=== PATIENT | male | born 1965 | race Caucasian/White ===

== ENCOUNTER 2019-03-08 16:54 | Inpatient (IN) | payer MEDICAID ==
[2019-03-08] VITALS (13 sets, daily range): BP systolic 119–168; BP diastolic 77–98
[~2019-03-08] VITALS: Ht 152.4 cm; Wt 56.2 kg
--- NOTE | 2019-03-08 16:30 | NUR ---
RN NOTES RECEIVED PT IN ROOM 255 FROM [facility], PT PLACED IN ISOLATION ROOM , PT IS A/Ox4, O2 SAT 91%-92% ON 5L O2 N/C , ON TELE A.FIB HR IN 100'S , PT HAS LEFT ARM AV SHUNT FOR DIALYSIS, WITH POSITIVE BRUIT AND TRILL. IV SITES ON R HAND AND R HAND G20 CLEAN, DRY AND INTACT. DR NAVARRO NOITFED REGARDING ADMISSION ORDER , SR UP x3, CALL LIGHT WITHIN EASY REACH, BED LOCKED AND IN LOWEST POSITION , CONTINUE TO MONITOR .
[2019-03-08] MEDS ORDERED: TRAM50TA2 PO (17:25)
[2019-03-08] MEDS ORDERED: PRED2.5T PO (17:25)
[2019-03-08] MEDS ORDERED: CLON0.2T PO (17:25)
[2019-03-08] MEDS ORDERED: CALC-7 PO (17:25)
[2019-03-08] MEDS ORDERED: CHOL200026 PO (17:25)
[2019-03-08] MEDS ORDERED: LEVO25TA7 PO (17:25)
[2019-03-08] MEDS ORDERED: CEFT1VIA14 IV (17:25)
[2019-03-08] MEDS ORDERED: CALC0.253 PO (17:25)
[2019-03-08] MEDS ORDERED: NIFE60TA2 PO (17:25)
[2019-03-08] MEDS ORDERED: ONDA4VIA52 IVP (17:25)
[2019-03-08] MEDS ORDERED: PANT40TA2 PO (17:25)
[2019-03-08] MEDS ORDERED: FURO10VI IVP (17:25)
[2019-03-08] MEDS ORDERED: GUAI5SYR PO (17:25)
[2019-03-08] MEDS ORDERED: FOLI0.4T2 PO (17:25)
[2019-03-08] MEDS ORDERED: ASPI-1152 PO (17:25)
[2019-03-08] MEDS ORDERED: ACET-868 PO ×2 (17:25)
[2019-03-08] MEDS ORDERED: OMEG1CAP PO (17:25)
[2019-03-08] MEDS ORDERED: AMIO200T4 PO (17:25)
[2019-03-08] MEDS ORDERED: METO25TA6 PO (17:25)
[2019-03-08] MEDS ORDERED: DOCU250C14 PO (17:25)
[2019-03-08] MEDS ORDERED: HYDR100T27 PO (17:25)
[2019-03-08] MEDS ORDERED: CYCL50CA6 PO (17:25)
[2019-03-08] MEDS ORDERED: CITR30SO PO (17:25)
[2019-03-08] MEDS ORDERED: RANI150T8 PO (17:38)
[2019-03-08] MEDS ORDERED: MYCO500T5 PO (17:38)
--- NOTE | 2019-03-08 18:25 | NUR ---
RN NOTES PT STABLE, WILL ENDORSE TO FULL STACK SOFTWARE DEVELOPER NURSE FOR CONTINUITY OF CARE .
[2019-03-08] MEDS ORDERED: ONDANSETRON HCL/PF 4 MG/2 ML VIAL IVP PRN ×2 (19:00→19:30)
[2019-03-08] MEDS ORDERED: DOCUSATE SODIUM 250 MG CAPSULE PO PRN (19:00)
[2019-03-08] MEDS ORDERED: TRAMADOL HCL 50 MG TABLET PO PRN (19:00)
[2019-03-08] MEDS ORDERED: ACETAMINOPHEN 325 MG TABLET PO PRN ×2 (19:00→19:30)
[2019-03-08] MEDS ORDERED: CLONIDINE HCL 0.1 MG TABLET PO PRN (19:00)
--- NOTE | 2019-03-08 19:05 | NUR ---
QUARRY PLANT CRUSHER OPERATOR RCD REPORT; PENDING ADMISSION ORDERS.
[2019-03-08] MEDS ORDERED: MAGNESIUM HYDROXIDE 30 ML UDC PO PRN (19:30)
[2019-03-08] MEDS ORDERED: HYDROCODONE/APAP 5/325MG 1 EACH TABLET PO PRN (19:30)
[2019-03-08] MEDS ORDERED: Z GUARD REMEDY 2 OZ OINT TP PRN (19:30)
[2019-03-08] MEDS ORDERED: MAG HYDROX/AL HYDROX/SIMETH 30 ML UDC PO PRN (19:30)
--- NOTE | 2019-03-08 20:11 | NUR ---
WELL DRILL OPERATOR HELPER CABLE TOOL PT CONVERTED TO NSR. CONTINUE TO MONITOR.
[2019-03-08] MEDS ORDERED: FEE PK DOSING 1 MIN EA MC ONE (20:23)
[2019-03-08] MEDS ORDERED: VANCOMYCIN POST DIALYSIS 500MG IV PRN ×2 (20:30)
[2019-03-08] MEDS: OSELTAMIVIR PHOSPHATE 75 MG CAPSULE PO SCH (20:59)
[2019-03-08] MEDS: MYCOPHENOLATE MOFETIL 250 MG CAPSULE PO SCH (21:00)
[2019-03-08] MEDS ORDERED: IV NS 0.9% 250 ML IV PRN (21:00)
[2019-03-08] MEDS ORDERED: hydrALAZINE HCL 50 MG TABLET PO SCH (21:00)
[2019-03-08] MEDS: CEFEPIME 1 GM in IV D5W 50 ML IV SCH (21:00)
[2019-03-08] MEDS: CITRIC ACID/SODIUM CITRATE (BICITRA)15 ML UDC PO SCH (21:00)
--- NOTE | 2019-03-08 21:00 | NUR ---
SUPERVISOR HEADING PER PT HE IS NOT ALLERGIC TO HYDRALAZINE; HOWEVER HE DOES NOT WANT IV HYDRALAZINE GIVEN TOO FAST BECAUSE HE WILL VOMIT.
[2019-03-08] MEDS: FAMOTIDINE (20 MG) 20 MG TABLET PO SCH (21:01)
[2019-03-08] MEDS: NIFEdipine XL 60 MG TAB PO SCH (21:02)
[2019-03-08] MEDS: hydrALAZINE HCL 50 MG TABLET PO SCH (21:02)
[2019-03-08 21:28] LABS: BASOPHILS # (AUTO) 0.1 /CMM (0.0-0.2); BASOPHILS % (AUTO) 0.5 % (0.0-2.0); EOSINOPHILS % (AUTO) 0.7 % (0.0-6.0); HEMATOCRIT 35 % (39-51); HEMOGLOBIN 11.1 g/dL (13.5-17.5); LYMPHOCYTES # (AUTO) 0.2 /CMM (0.8-4.8); MEAN CORPUSCULAR HGB CONC 32 g/dl (31.0-36.0); MEAN CORPUSCULAR VOLUME 86 fL (80-96); MONOCYTES # (AUTO) 0.3 /CMM (0.1-1.30); MONOCYTES % (AUTO) 2.7 % (2.0-12.0); NEUTROPHILS # (AUTO) 9.2 /CMM (1.8-8.9); NEUTROPHILS % (AUTO) 94.1 % (43.0-81.0); PLATELET COUNT (AUTO) 100 /CMM (150-450); RED BLOOD CELL COUNT(AUTO) 4.05 MIL/uL (4.5-6.0); WHITE BLOOD COUNT (AUTO) 9.8 K/uL (4.3-11.0)
[2019-03-08 21:35] LABS: CALCIUM, SERUM 7.2 mg/dL (8.5-10.1); CREATININE 6.7 mg/dL (0.6-1.3); POTASSIUM 3.9 mmol/L (3.5-5.1)
[2019-03-08] MEDS: METOPROLOL TARTRATE 50 MG TABLET PO SCH (22:00)
[2019-03-08] MEDS ORDERED: VANCOMYCIN 1 GM in IV D5W 250ml IV ONE (22:00)
--- NOTE | 2019-03-08 23:09 | NUR ---
NIGHT TIME BABYSITTER REPORT GIVEN TO MAY PENA FOR CONTINUITY OF CARE.
--- NOTE | 2019-03-08 23:30 | NUR ---
ASHLEY RN OPENING NOTE RECEIVED PATIENT AT THIS TIME. A&O X4. ABLE TO MAKE NEEDS KNOWN. IN NO APPARENT DISTRESS NOTED AT THIS TIME. CALL LIGHT IS WITH EASY REACH. WILL CONTINUE TO MONITOR.
[2019-03-09] VITALS: BP 142/91
[2019-03-09] MEDS ORDERED: ESOM40CA PO (01:46)
[2019-03-09 04:00] VITALS: BP 129/69
[2019-03-09] MEDS: CITRIC ACID/SODIUM CITRATE (BICITRA)15 ML UDC PO SCH ×3 (04:37→21:22)
[2019-03-09] MEDS: hydrALAZINE HCL 50 MG TABLET PO SCH ×3 (04:37→21:00)
--- NOTE | 2019-03-09 06:40 | NUR ---
ASHLEY RN CLOSING NOTE PATIENT IS IN BED RESTING AT THIS TIME. RESPONSIVE TO NAME AND TACTILE STIMULI. ON O2 6L VIA NC. ON NEGATIVE PRESSURE ROOM FOR R/O TB. PATIENT IS KEPT CLEAN, DRY, AND COMFORTABLE. CALL LIGHT IS WITHIN EASY REACH. WILL CONTINUE TO MONITOR.
[2019-03-09 06:52] LABS: CREATININE 6.8 mg/dL (0.6-1.3); MAGNESIUM 1.4 mg/dL (1.8-2.4); PHOSPHORUS 3.8 mg/dL (2.5-4.9); POTASSIUM 3.8 mmol/L (3.5-5.1)
[2019-03-09 06:56] LABS: BASOPHILS % (AUTO) 0.1 % (0.0-2.0); EOSINOPHILS % (AUTO) 1.8 % (0.0-6.0); HEMATOCRIT 30 % (39-51); HEMOGLOBIN 9.8 g/dL (13.5-17.5); LYMPHOCYTES # (AUTO) 0.3 /CMM (0.8-4.8); LYMPHOCYTES % (AUTO) 3.7 % (20.0-44.0); MEAN CORPUSCULAR HGB CONC 32 g/dl (31.0-36.0); MEAN CORPUSCULAR VOLUME 85 fL (80-96); MONOCYTES # (AUTO) 0.3 /CMM (0.1-1.30); MONOCYTES % (AUTO) 3.6 % (2.0-12.0); NEUTROPHILS # (AUTO) 7.3 /CMM (1.8-8.9); NEUTROPHILS % (AUTO) 90.8 % (43.0-81.0); PLATELET COUNT (AUTO) 99 /CMM (150-450); RED BLOOD CELL COUNT(AUTO) 3.57 MIL/uL (4.5-6.0)
--- NOTE | 2019-03-09 07:30 | NUR ---
ASHLEY RN AM NOTE PATIENT IN BED,AAO X 3, ON 6L O2 NASAL CANULA, NOT IN DISTRESS, NO SOB, SINUS RHYTHM HR 68, DENIES PAIN, LEFT AV SHUNT THRILL PRESENT, WITH RFA g20 AND RIGHT HAND G 20 BOTH FLUSHES WELL, BOTH SITES CLEAR, REGULAR DIET, AMBULATORY, USES URINALS. ON NEGATIVE PRESSURE ROOM FOR R/O TB. ISOLATION PRECAUTION - DROPLETS. PATIENT IS KEPT CLEAN, DRY, AND COMFORTABLE. CALL LIGHT IS WITHIN EASY REACH. PLAN OF CARE DISCUSSED. VERBALIZED UNDERSTANDING. WILL CONTINUE TO MONITOR.
[2019-03-09 08:00] VITALS: BP 115/72
[2019-03-09] MEDS: PANTOPRAZOLE 40 MG TABLET.DR PO SCH (08:09)
[2019-03-09] MEDS: LEVOTHYROXINE SODIUM 25 MCG TABLET PO SCH (08:09)
[2019-03-09] MEDS: FUROSEMIDE 40 MG/4 ML VIAL IV SCH ×2 (08:24→16:18)
[2019-03-09] MEDS: CHOLECALCIFEROL 1,000 UNIT TABLET (VIT D3) PO SCH (08:25)
[2019-03-09] MEDS: CALCIUM CARB 250MG /VITAMIN D 1 UDTAB PO SCH ×3 (08:25→16:18)
[2019-03-09] MEDS: FAMOTIDINE (20 MG) 20 MG TABLET PO SCH ×2 (08:25→21:23)
[2019-03-09] MEDS: predniSONE 5 MG TABLET PO SCH (08:25)
[2019-03-09] MEDS: OSELTAMIVIR PHOSPHATE 75 MG CAPSULE PO SCH ×2 (08:25→16:18)
[2019-03-09] MEDS: FOLIC ACID 1 MG TABLET PO SCH (08:25)
[2019-03-09] MEDS: MYCOPHENOLATE MOFETIL 250 MG CAPSULE PO SCH ×2 (08:25→21:23)
[2019-03-09] MEDS: CALCITRIOL 0.25 MCG CAPSULE PO SCH (08:26)
[2019-03-09] MEDS: NIFEdipine XL 60 MG TAB PO SCH (08:26)
[2019-03-09] MEDS: METOPROLOL TARTRATE 50 MG TABLET PO SCH ×2 (08:27→21:00)
[2019-03-09] MEDS ORDERED: Medication Not On Formulary EA (Omega-3 Fatty Acids/Fish Oil (Fish Oil 1,000 Mg Capsule) PO SCH (09:00)
[2019-03-09] MEDS ORDERED: AMIODARONE HCL 200 MG TABLET PO SCH (09:00)
[2019-03-09] MEDS ORDERED: CEFTRIAXONE 1 G VIAL IV SCH (09:00)
[2019-03-09] MEDS: DILTIAZEM HCL CD 180 MG PO SCH (09:30)
--- NOTE | 2019-03-09 09:30 | NUR ---
RN NOTES DC ASHLEY STATUS PER DR. AMARO. TRANSFER TO TELEMETRY
--- NOTE | 2019-03-09 10:45 | NUR ---
RN NOTES COLLECTED SPUTUM SPECIMEN FOR AFB ANALYSIS. SPECIMEN #1 SENT TO LAB
[2019-03-09 12:00] VITALS: BP 110/76
[2019-03-09] MEDS ORDERED: SODIUM CL FOR INHALATION 3% 15 ML VIAL.NEB IH ONE (12:30)
[2019-03-09 16:00] VITALS: BP 108/76
--- NOTE | 2019-03-09 18:23 | NUR ---
RN CLOSING NOTES PATIENT IN BED,AAO X 3, ON 6L O2 NASAL CANULA, NOT IN DISTRESS, NO SOB, SINUS RHYTHM HR 68, DENIES PAIN, LEFT AV SHUNT THRILL PRESENT, WITH RFA g20 AND RIGHT HAND G 20 BOTH FLUSHES WELL, BOTH SITES CLEAR, REGULAR DIET, AMBULATORY, USES URINALS. ON NEGATIVE PRESSURE ROOM FOR R/O TB. ISOLATION PRECAUTION - DROPLETS. PATIENT IS KEPT CLEAN, DRY, AND COMFORTABLE. CALL LIGHT IS WITHIN EASY REACH. PM CARE DONE. ALL NEEDS MET AT THIS TIME. WILL ENDORSE TO NEXT SHIFT FOR DOMENIC.
[2019-03-09 20:00] VITALS: BP 102/60
--- NOTE | 2019-03-09 20:03 | NUR ---
LIVE OUT NANNY OPENING NOTE RECEIVED PATIENT A/O X4 HEBREW SPEAKER. CURRENTLY IN NO SIGN OF ANY DISTRESS. PATIENT IS ON ON 6L OF O2 WITH NO COMPLAINTS OF SOB. PATIENT ON THE MONITOR SHOWS SINUS RHYTHM IN THE 70'S. PATIENT HAS IV ACCESS ON THE RFA #20 AND RIGHT HAND #20 S/L PATENT AND FLUSHING WELL. PATIENT ALSO HAS A LEFT AV SHUNT. PATIENT IS ABLE TO AMBULATE WITH ASSISTANCE IF NEEDED. ALL SAFETY PRECAUTIONS HAVE BEEN APPLIED. ISOLATION PRECAUTIONS. WILL CONTINUE TO MONITOR PATIENT FOR DOMENIC.
[2019-03-09] MEDS ORDERED: CEFTRIAXONE 1 G in IV D5W 50 ML IV SCH (21:00)
[2019-03-09] MEDS: CEFEPIME 1 GM in IV D5W 50 ML IV SCH (21:22)
--- NOTE | 2019-03-09 21:34 | NUR ---
TURBINE BLADE ASSEMBLER NOTE SKIPPED DOSE OF HYDRALAZINE AND METROPOLOL SCHEDULED AT 2100 DUE TO BP BEING LOW AT 102/60
[2019-03-10] VITALS: BP 102/63
[2019-03-10 04:00] VITALS: BP 116/68
[2019-03-10] MEDS: CITRIC ACID/SODIUM CITRATE (BICITRA)15 ML UDC PO SCH ×3 (05:00→21:15)
[2019-03-10] MEDS: hydrALAZINE HCL 50 MG TABLET PO SCH ×3 (05:49→21:00)
--- NOTE | 2019-03-10 07:28 | NUR ---
EMERGENCY MANAGEMENT PROGRAM SPECIALIST NOTE PATIENT IN BED WITH NO SIGN OF ANY DISTRESS. ALL SAFETY PRECAUTIONS APPLIED. ENDORSED PATIENT TO MORNING SHIFT NURSE FOR DOMENIC
[2019-03-10 08:00] VITALS: BP 117/79
[2019-03-10] MEDS ORDERED: SODIUM CL FOR INHALATION 3% 15 ML VIAL.NEB IH ONE (08:00)
--- NOTE | 2019-03-10 08:00 | NUR ---
DATABASE DEVELOPER NOTE PATIENT IN BED AWAKE ALERT ORIENTED , ON TELE MONIOTR HR 80 . RT HAND AND RT FA HL INATCT AND FLUSHED WELL, BED IN LOWEST AND LOCKED POSITION , WITH SLIGHT SOB NOTED ON 6L NC SAT 99% AT THIS TIME, ON TX SAMIRA RT AT BEDSIDE AWARE THAT AF[employer] SPUTUM NEED TO BE COLLECTED STATED WILL DO , ALL NEEDS ATTENDED
[2019-03-10] MEDS: predniSONE 5 MG TABLET PO SCH (09:00)
[2019-03-10] MEDS: FAMOTIDINE (20 MG) 20 MG TABLET PO SCH ×2 (09:40→21:16)
[2019-03-10] MEDS: MYCOPHENOLATE MOFETIL 250 MG CAPSULE PO SCH ×2 (09:40→21:15)
[2019-03-10] MEDS: METOPROLOL TARTRATE 50 MG TABLET PO SCH ×2 (09:41→21:00)
[2019-03-10] MEDS: CALCIUM CARB 250MG /VITAMIN D 1 UDTAB PO SCH ×3 (09:41→17:00)
[2019-03-10] MEDS: CHOLECALCIFEROL 1,000 UNIT TABLET (VIT D3) PO SCH (09:41)
[2019-03-10] MEDS: CALCITRIOL 0.25 MCG CAPSULE PO SCH (09:41)
[2019-03-10] MEDS: FOLIC ACID 1 MG TABLET PO SCH (09:41)
[2019-03-10] MEDS: FUROSEMIDE 40 MG/4 ML VIAL IV SCH ×2 (09:41→16:56)
[2019-03-10] MEDS: LEVOTHYROXINE SODIUM 25 MCG TABLET PO SCH (09:41)
[2019-03-10] MEDS: DILTIAZEM HCL CD 180 MG PO SCH (09:42)
[2019-03-10] MEDS: PANTOPRAZOLE 40 MG TABLET.DR PO SCH (09:42)
[2019-03-10] MEDS: AMIODARONE HCL 200 MG TABLET PO SCH ×3 (09:44→17:00)
--- NOTE | 2019-03-10 10:05 | NUR ---
YEAST STACKER NOTE SPOKE WITH SHAHRZAD FERNANDEZ TO GIVE AMIODARONE ABD CARDIZEM BP117/79 HR 80
--- NOTE | 2019-03-10 10:42 | NUR ---
MARINE PIPE WELDER NOTE ED ECHO DOING NOW PREDNISONE NOT AVAILABLE PHARMACY NOTIFIED
[2019-03-10] MEDS: APIXABAN 2.5 MG TABLET PO SCH ×2 (11:08→16:56)
--- NOTE | 2019-03-10 11:11 | NUR ---
telephone solicitor supervisor note sputum for afb collected spoke with lab stated that will pickup will f\u
[2019-03-10 12:00] VITALS: BP 116/64
--- NOTE | 2019-03-10 14:48 | NUR ---
teletype or varitype keyboard operator note seen by dr rizo no hd today
[2019-03-10 16:00] VITALS: BP 115/65
--- NOTE | 2019-03-10 16:01 | NUR ---
wireless telegrapher note unable to collect sputum enough enough for specimen for mtb robin lf\u tomorrow with rt
[2019-03-10] MEDS: OSELTAMIVIR PHOSPHATE 75 MG CAPSULE PO SCH (17:00)
--- NOTE | 2019-03-10 18:40 | NUR ---
SENIOR UNIX ADMINISTRATOR NOTE HAVING DINNER ,ABLE TO EAT SELF , ALL NEEDS ATTENDED,NO SOB NOTED AT THIS TIME, BED IN LOWEST AND LOCKED POSITION, WILL CONT TO MONITOR, CALL LIGHT WITHIN REACH
--- NOTE | 2019-03-10 19:30 | NUR ---
FIRER MARINE NOTE: PATIENT RESTING IN BED, NO ACUTE DISTRESS NOTED. BREATHING EVEN AND UNLABORED, NO SOB NOTE. IV TO RIGHT HAND AND RFA IN PLACE. TELE READING SR 77. ISOLATION PRECAUTIONS OBSERVED. BED LOCKED AND IN LOWEST POSITION, CALL LIGHT IN REACH WILL CONTINUE TO MONITOR.
[2019-03-10 20:00] VITALS: BP 107/64
[2019-03-10] MEDS: CEFEPIME 1 GM in IV D5W 50 ML IV SCH (21:02)
--- NOTE | 2019-03-10 21:45 | NUR ---
BEVELER NOTE: PATIENT BLOOD PRESSURE MEDICATIONS NOT GIVEN, PATIENT BLOOD PRESSURE 107/64, HR 87. PER PATIENT THAT IS TOO LOW FOR HIM AND DOES NOT WANT MEDICATIONS. PATIENT DENIES DIZZINESS OR LIGHTHEADEDNESS. WILL CONTINUE TO MONITOR.
[2019-03-11] VITALS (9 sets, daily range): BP systolic 105–126; BP diastolic 48–71
[2019-03-11] MEDS: hydrALAZINE HCL 50 MG TABLET PO SCH ×3 (06:00→22:32)
--- NOTE | 2019-03-11 06:10 | NUR ---
HUMAN RESOURCES TRAINING MANAGER NOTE: PATIENT RESTING IN BED, NO ACUTE DISTRESS NOTED. BREATHING EVEN AND UNLABORED, NO SOB NOTE. IV TO RIGHT HAND AND RFA IN PLACE. TELE READING SR 70. PATIENT UNABLE TO PROVIDE SPUTUM WITH RT, WILL CONTINUE TO TRY TO COLLECT SPUTUM, SPECIMEN CUP AT BEDSIDE. ISOLATION PRECAUTIONS OBSERVED. BED LOCKED AND IN LOWEST POSITION, CALL LIGHT IN REACH. WILL ENDORSE TO DAY NURSE TO CONTINUE WITH PLAN OF CARE.
[2019-03-11] MEDS: CITRIC ACID/SODIUM CITRATE (BICITRA)15 ML UDC PO SCH ×3 (06:13→22:31)
--- NOTE | 2019-03-11 06:15 | NUR ---
PT UNABLE TO PERFORM OR PRODUCE SPUTUM SAMPLE DUE TO NON PRODUCTIVE COUGH CURRENTLY, PT AWAKE/ALERT AND AWARE TO COLLECT SAMPLE IN SPECIMEN CUP. JEAN CAGLE MADE AWARE. THERAPIST WILL ENDORSE TO ONCOMING SHIFT.
[2019-03-11 06:41] LABS: BASOPHILS % (AUTO) 0.3 % (0.0-2.0); EOSINOPHILS % (AUTO) 1.7 % (0.0-6.0); HEMATOCRIT 26 % (39-51); HEMOGLOBIN 8.3 g/dL (13.5-17.5); LYMPHOCYTES # (AUTO) 0.4 /CMM (0.8-4.8); LYMPHOCYTES % (AUTO) 5.1 % (20.0-44.0); MEAN CORPUSCULAR HGB CONC 32 g/dl (31.0-36.0); MEAN CORPUSCULAR VOLUME 85 fL (80-96); MONOCYTES # (AUTO) 0.7 /CMM (0.1-1.30); MONOCYTES % (AUTO) 9.5 % (2.0-12.0); NEUTROPHILS # (AUTO) 5.8 /CMM (1.8-8.9); NEUTROPHILS % (AUTO) 83.4 % (43.0-81.0); PLATELET COUNT (AUTO) 120 /CMM (150-450); RED BLOOD CELL COUNT(AUTO) 3.05 MIL/uL (4.5-6.0)
[2019-03-11 07:09] LABS: CALCIUM, SERUM 7.6 mg/dL (8.5-10.1); MAGNESIUM 1.3 mg/dL (1.8-2.4); PHOSPHORUS 4.3 mg/dL (2.5-4.9); POTASSIUM 4.4 mmol/L (3.5-5.1)
[2019-03-11 07:12] LABS: CREATININE 8.1 mg/dL (0.6-1.3)
--- NOTE | 2019-03-11 07:20 | NUR ---
CHOIR LEADER NOTE: RECEIVED PATIENT RESTING IN BED IN MODERATE HIGH BACK REST, A/O X4. NO ACUTE SIGNS OF DISTRESS NOTED AT THIS TIME. BREATHING EVEN AND UNLABORED, NO SOB NOTED. IV ACCESS ON RIGHT HAND AND RFA. PATENT AND INTACT. TELE READING SR 70'S. ON ISOLATION PRECAUTION. SAFETY MEASURES IN PLACE, BED LOCKED AND IN LOWEST POSITION, CALL LIGHT IN REACH. WILL CONTINUE TO MONITOR.
--- NOTE | 2019-03-11 08:30 | NUR ---
RN NOTES CRITICAL LAB RESULTS, BUN- 120 AND CREA 8.1, DIALYSIS NURSE ON UNIT, PER DIALYSIS NURSE PATIENT IS SCHEDULED FOR DIALYSIS LATER AROUND LUNCH. MD NOTIFIED. WILL CONTINUE TO MONITOR.
[2019-03-11] MEDS: MYCOPHENOLATE MOFETIL 250 MG CAPSULE PO SCH ×2 (08:36→22:31)
[2019-03-11] MEDS: CALCITRIOL 0.25 MCG CAPSULE PO SCH (08:36)
[2019-03-11] MEDS: PANTOPRAZOLE 40 MG TABLET.DR PO SCH (08:37)
[2019-03-11] MEDS: CHOLECALCIFEROL 1,000 UNIT TABLET (VIT D3) PO SCH (08:37)
[2019-03-11] MEDS: FOLIC ACID 1 MG TABLET PO SCH (08:37)
[2019-03-11] MEDS: LEVOTHYROXINE SODIUM 25 MCG TABLET PO SCH (08:37)
[2019-03-11] MEDS: FAMOTIDINE (20 MG) 20 MG TABLET PO SCH ×2 (08:38→22:31)
[2019-03-11] MEDS: APIXABAN 2.5 MG TABLET PO SCH ×2 (08:39→16:28)
[2019-03-11] MEDS: predniSONE 5 MG TABLET PO SCH (08:42)
[2019-03-11] MEDS: CALCIUM CARB 250MG /VITAMIN D 1 UDTAB PO SCH ×3 (08:42→16:27)
[2019-03-11] MEDS: AMIODARONE HCL 200 MG TABLET PO SCH ×2 (09:00→16:26)
[2019-03-11] MEDS: FUROSEMIDE 40 MG/4 ML VIAL IV SCH ×2 (09:00→16:26)
[2019-03-11] MEDS: DILTIAZEM HCL CD 180 MG PO SCH (09:00)
[2019-03-11] MEDS: METOPROLOL TARTRATE 50 MG TABLET PO SCH ×2 (09:00→22:32)
[2019-03-11 10:40] LABS: IRON, SERUM 14 ug/dl (50-175); TOTAL IRON BINDING CAPACITY 104 ug/dl (250-450)
[2019-03-11 10:56] LABS: FERRITIN 306 ng/mL (8-388)
--- NOTE | 2019-03-11 13:00 | NUR ---
RN NOTES REFUSED HYDRALAZINE 13:00, PATIENT IS SCHEDULE FOR DIALYSIS TODAY.
--- NOTE | 2019-03-11 13:10 | NUR ---
RT AF[employer] SPUTUM SAMPLE OBTAINED.
--- NOTE | 2019-03-11 14:00 | NUR ---
RN NOTES CALLED PHARMACY X2 FOR FERRLICIT, PER PHARMACY THEY ARE STILL MAKING IT. WILL F/U.
[2019-03-11] MEDS: SOD FERRIC GLUC 125 MG in IV NS 0.9% 100 ML IV SCH (14:28)
[2019-03-11] MEDS: OSELTAMIVIR PHOSPHATE 75 MG CAPSULE PO SCH (16:27)
--- NOTE | 2019-03-11 18:46 | NUR ---
LABORER EGG PRODUCING FARM CLOSING NOTE: PATIENT RESTING IN BED IN MODERATE HIGH BACK REST, A/O X4. NO ACUTE SIGNS OF DISTRESS NOTED THROUGHOUT THE SHIFT. IV ACCESS ON RIGHT HAND AND RFA. PATENT AND INTACT. TELE READING SR 70'S. ON ISOLATION PRECAUTION. CURRENTLY DOING DIALYSIS ON PATIENT'S ROOM. SAFETY MEASURES IN PLACE, BED LOCKED AND IN LOWEST POSITION, CALL LIGHT IN REACH. WILL ENDORSE TO LANDSCAPE CONTRACTOR NURSE FOR DOMENIC.
--- NOTE | 2019-03-11 19:40 | NUR ---
TURRET LATHE MACHINIST OPENING NOTES RECEIVED PATIENT FROM MORNING SHIFT ALERT AND ORIENTED X 4. BREATHING REGULAR AND UNLABORED ON OXYGEN AT 5L/MIN VIA NASAL CANNULA. RIGHT FOREARM G20, RIGHT HAND G 20 AND LEFT AV SHUNT INTACT AND PATENT WITH NO BLEEDING OR S/S OF INFECTION NOTED. HEMODIALYSIS ON-GOING. NO COMPLAINTS OF PAIN/DISCOMFORT REPORTED OF THE TIME. ON ISOLATION FOR INFLUENZA AND R/O TB, ISOLATION PRECAUTION AND PROPER HAND WASHING OBSERVED. LOW AND LOCKED ON SEMI FOWLERS POSITION. CALL LIGHT IN REACH. WILL CONTINUE TO MONITOR.
[2019-03-11] MEDS ORDERED: CEPHALEXIN MONOHYDRATE 250 MG CAPSULE PO SCH (20:00)
[2019-03-11] MEDS ORDERED: MAGNESIUM OXIDE 400 MG TABLET PO ONE (22:00)
--- NOTE | 2019-03-11 22:15 | NUR ---
FIXING CARPENTER NOTES S/P HEMODIALYSIS WITH 2800ML OUTPUT. VITAL SIGNS TAKEN. MEAL TRAY PROVIDED. NO ACTIVE BLEEDING NOTED ON LEFT FOREARM AV SHUNT. IV DRESSING CHANGED. WILL CONTINUE TO MONITOR.
[2019-03-11] MEDS: CEFEPIME 1 GM in IV D5W 50 ML IV SCH (22:23)
[2019-03-11] MEDS: VANCOMYCIN 500 MG in IV D5W 100 ML IV PRN (23:18)
[2019-03-12] VITALS (8 sets, daily range): BP systolic 121–148; BP diastolic 67–86
[2019-03-12] MEDS: CITRIC ACID/SODIUM CITRATE (BICITRA)15 ML UDC PO SCH ×3 (04:50→20:57)
[2019-03-12] MEDS: hydrALAZINE HCL 50 MG TABLET PO SCH ×3 (04:51→21:00)
--- NOTE | 2019-03-12 06:20 | NUR ---
CHROMOSOMAL DISORDERS COUNSELOR CLOSING NOTES PATIENT IN BED ALERT AND ORIENTED X 4. BREATHING REGULAR AND UNLABORED ON OXYGEN AT 5L/MIN VIA NASAL CANNULA. RIGHT FOREARM G20 AND RIGHT HAND G20 INTACT AND FLUSHING WELL. NO ACTIVE BLEEDING NOTED ON LEFT AV SHUNT. S/P HEMODIALYSIS 2800ml OUTPUT. NO COMPLAINTS OF PAIN/DISCOMFORT REPORTED THE WHOLE SHIFT. MAINTAINED ON ISOLATION FOR INFLUENZA AND R/O TB, ISOLATION PRECAUTION AND PROPER HAND WASHING OBSERVED. LOW AND LOCKED ON SEMI FOWLERS POSITION. CALL LIGHT IN REACH. WILL ENDORSE TO MORNING SHIFT FOR DOMENIC.
--- NOTE | 2019-03-12 07:30 | NUR ---
ASSIGNMENT CLERK OPENING NOTES RECEIVED PATIENT RESTING IN BED FROM WAREHOUSE FOREMAN NURSE. PATIENT IS COMFORTABLE. ALERT AND ORIENTED X4, NO ACUTE DISTRESS NOTED. BREATHING IS REGULAR AND UNLABORED. NO SOB NOTED. PATIENT IS RECEIVING 5L O2 VIA NC. IV ON RIGHT HAND AND FORE ARM BOTH 20 GAUGE, INTACT PATENT AND FLUSHED WELL. NSR ON THE MONITOR WITH 73BPM. DROPLET ISOLATION OBSERVED. NO COMPLAINS OF PAIN OR DISCOMFORT. CALL LIGHT WITHIN REACH. SAFETY MAINTAINED. WILL CONTINUE TO MONITOR.
[2019-03-12] MEDS: CHOLECALCIFEROL 1,000 UNIT TABLET (VIT D3) PO SCH (08:50)
[2019-03-12] MEDS: FUROSEMIDE 40 MG/4 ML VIAL IV SCH ×2 (08:51→17:55)
[2019-03-12] MEDS: METOPROLOL TARTRATE 50 MG TABLET PO SCH ×2 (08:52→20:59)
[2019-03-12] MEDS: DILTIAZEM HCL CD 180 MG PO SCH (08:52)
[2019-03-12] MEDS: FAMOTIDINE (20 MG) 20 MG TABLET PO SCH ×2 (08:52→21:01)
[2019-03-12] MEDS: predniSONE 5 MG TABLET PO SCH (08:53)
[2019-03-12] MEDS: CALCIUM CARB 250MG /VITAMIN D 1 UDTAB PO SCH ×3 (08:53→17:55)
[2019-03-12] MEDS: MYCOPHENOLATE MOFETIL 250 MG CAPSULE PO SCH ×2 (08:53→20:59)
[2019-03-12] MEDS: CALCITRIOL 0.25 MCG CAPSULE PO SCH (08:53)
[2019-03-12] MEDS: AMIODARONE HCL 200 MG TABLET PO SCH ×2 (08:53→17:55)
[2019-03-12] MEDS: LEVOTHYROXINE SODIUM 25 MCG TABLET PO SCH (08:53)
[2019-03-12] MEDS: PANTOPRAZOLE 40 MG TABLET.DR PO SCH (08:53)
[2019-03-12] MEDS: FOLIC ACID 1 MG TABLET PO SCH (08:53)
[2019-03-12] MEDS: APIXABAN 2.5 MG TABLET PO SCH ×2 (08:56→17:56)
[2019-03-12] MEDS: SOD FERRIC GLUC 125 MG in IV NS 0.9% 100 ML IV SCH (14:23)
[2019-03-12] MEDS: OSELTAMIVIR PHOSPHATE 75 MG CAPSULE PO SCH (17:56)
--- NOTE | 2019-03-12 19:30 | NUR ---
MS RN CLOSING NOTES PT IN STABLE CONDITION. NO ACUTE CHANGES TO PT CONDITION DURING MY SHIFT. ALL NEEDS MET. IN BED ALERT AND ORIENTED X4. DOWNGRADED TO MED SURG DURING MY SHIFT. PT KEPT ON OXYGEN DURING MY SHIFT, 5L VIA NC. NO SOB NOTED, RESPIRATIONS EVEN AND UNLABORED. HEMODIALYSIS DONE, 2.5L WAS TAKEN OUT. OBSERVATION OBSERVED. SAFETY MAINTAINED. CALL LIGHT WITHIN REACH. ENDORSED TO SHIPPING CLERK/ADMIN NURSE TO CONTINUE CARE.
[2019-03-12] MEDS: VANCOMYCIN 500 MG in IV D5W 100 ML IV PRN (19:56)
--- NOTE | 2019-03-12 19:56 | NUR ---
Vnacomycin 500mg/100mls, given post HD, per order, Vanco level 18.
[2019-03-12 20:09] LABS: *MYCOPLASMA PNEUMONIAE IgG 189 U/mL (0-99); LEGIONELLA PNEUMOPHILIA AB <0.91 OD ratio (0.00-0.90)
[2019-03-12] MEDS: CEFEPIME 1 GM in IV D5W 50 ML IV SCH (21:13)
[2019-03-13] VITALS: BP 118/65
[2019-03-13 04:00] VITALS: BP 148/83
[2019-03-13] MEDS: hydrALAZINE HCL 50 MG TABLET PO SCH ×3 (05:36→21:24)
[2019-03-13] MEDS: CITRIC ACID/SODIUM CITRATE (BICITRA)15 ML UDC PO SCH ×3 (05:36→21:26)
[2019-03-13 07:13] LABS: BASOPHILS % (AUTO) 0.7 % (0.0-2.0); EOSINOPHILS % (AUTO) 2.9 % (0.0-6.0); HEMATOCRIT 26 % (39-51); HEMOGLOBIN 8.4 g/dL (13.5-17.5); LYMPHOCYTES # (AUTO) 0.3 /CMM (0.8-4.8); LYMPHOCYTES % (AUTO) 6.7 % (20.0-44.0); MEAN CORPUSCULAR HGB CONC 32 g/dl (31.0-36.0); MEAN CORPUSCULAR VOLUME 86 fL (80-96); MONOCYTES # (AUTO) 0.6 /CMM (0.1-1.30); MONOCYTES % (AUTO) 12.3 % (2.0-12.0); NEUTROPHILS # (AUTO) 3.8 /CMM (1.8-8.9); NEUTROPHILS % (AUTO) 77.4 % (43.0-81.0); PLATELET COUNT (AUTO) 102 /CMM (150-450); RED BLOOD CELL COUNT(AUTO) 3.07 MIL/uL (4.5-6.0); WHITE BLOOD COUNT (AUTO) 4.9 K/uL (4.3-11.0)
[2019-03-13 07:42] LABS: CALCIUM, SERUM 8.2 mg/dL (8.5-10.1); CREATININE 6.5 mg/dL (0.6-1.3); MAGNESIUM 1.5 mg/dL (1.8-2.4); PHOSPHORUS 3.9 mg/dL (2.5-4.9); POTASSIUM 4.4 mmol/L (3.5-5.1)
[2019-03-13 08:00] VITALS: BP 125/81
[2019-03-13] MEDS: LEVOTHYROXINE SODIUM 25 MCG TABLET PO SCH (08:26)
[2019-03-13] MEDS: PANTOPRAZOLE 40 MG TABLET.DR PO SCH (08:26)
[2019-03-13] MEDS: CHOLECALCIFEROL 1,000 UNIT TABLET (VIT D3) PO SCH (08:55)
[2019-03-13] MEDS: FAMOTIDINE (20 MG) 20 MG TABLET PO SCH ×2 (08:56→21:24)
[2019-03-13] MEDS: AMIODARONE HCL 200 MG TABLET PO SCH ×2 (08:56→17:22)
[2019-03-13] MEDS: CALCIUM CARB 250MG /VITAMIN D 1 UDTAB PO SCH ×3 (08:56→17:23)
[2019-03-13] MEDS: DILTIAZEM HCL CD 180 MG PO SCH (08:56)
[2019-03-13] MEDS: MYCOPHENOLATE MOFETIL 250 MG CAPSULE PO SCH ×2 (08:56→21:23)
[2019-03-13] MEDS: CALCITRIOL 0.25 MCG CAPSULE PO SCH (08:57)
[2019-03-13] MEDS: predniSONE 5 MG TABLET PO SCH (08:57)
[2019-03-13] MEDS: FUROSEMIDE 40 MG/4 ML VIAL IV SCH ×2 (08:57→17:21)
[2019-03-13] MEDS: FOLIC ACID 1 MG TABLET PO SCH (08:57)
[2019-03-13] MEDS: OSELTAMIVIR PHOSPHATE 75 MG CAPSULE PO SCH (08:57)
[2019-03-13] MEDS: METOPROLOL TARTRATE 50 MG TABLET PO SCH ×2 (08:59→21:25)
[2019-03-13] MEDS: APIXABAN 2.5 MG TABLET PO SCH ×2 (09:00→17:24)
[2019-03-13 11:11] LABS: *MYCOPLASMA PNEUMONIAE IgM <770 U/mL (0-769)
[2019-03-13] MEDS: SOD FERRIC GLUC 125 MG in IV NS 0.9% 100 ML IV SCH ×2 (13:48→15:04)
[2019-03-13 16:00] VITALS: BP 136/74
--- NOTE | 2019-03-13 19:50 | NUR ---
PATIENT RECEIVED WITH PRESSURE TO THE CHEST MINIMAL, REPOSITIONED AND CLAIMED HE IS RELIEVED, SLEPT THEREAFTER.
[2019-03-13 20:00] VITALS: BP 131/69
[2019-03-13] MEDS: CEFEPIME 1 GM in IV D5W 50 ML IV SCH (21:28)
[2019-03-14] MEDS: GUAIFENESIN/D-METHORPHAN HB 5 ML UDC PO PRN (01:18)
--- NOTE | 2019-03-14 01:35 | NUR ---
patient is complaining of shortness of breath.and no breathing treatment and ordered
--- NOTE | 2019-03-14 01:47 | NUR ---
RT INFORMED THAT THE PATIENT NEEDS BREATHING TREATMENT HE IS COMPLAINING OF SHORTNESS OF BREATH. COUGH MEDICATION GIVEN NEEDED FOR SHORTNESS OF BREATH
[2019-03-14] MEDS ORDERED: ALBUTEROL FS 2.5 MG/0.5 ML VIAL.NEB NEB PRN (02:00)
[2019-03-14] MEDS: hydrALAZINE HCL 50 MG TABLET PO SCH ×3 (04:39→21:21)
[2019-03-14] MEDS: CITRIC ACID/SODIUM CITRATE (BICITRA)15 ML UDC PO SCH ×3 (04:49→21:18)
[2019-03-14 08:00] VITALS: BP 133/72
[2019-03-14] MEDS: FAMOTIDINE (20 MG) 20 MG TABLET PO SCH ×2 (08:52→21:17)
[2019-03-14] MEDS: CHOLECALCIFEROL 1,000 UNIT TABLET (VIT D3) PO SCH (08:52)
[2019-03-14] MEDS: FOLIC ACID 1 MG TABLET PO SCH (08:52)
[2019-03-14] MEDS: MYCOPHENOLATE MOFETIL 250 MG CAPSULE PO SCH ×2 (08:53→21:17)
[2019-03-14] MEDS: FUROSEMIDE 40 MG/4 ML VIAL IV SCH ×2 (08:53→18:40)
[2019-03-14] MEDS: CALCITRIOL 0.25 MCG CAPSULE PO SCH (08:53)
[2019-03-14] MEDS: LEVOTHYROXINE SODIUM 25 MCG TABLET PO SCH (08:57)
[2019-03-14] MEDS: APIXABAN 2.5 MG TABLET PO SCH ×2 (08:57→18:41)
[2019-03-14] MEDS: PANTOPRAZOLE 40 MG TABLET.DR PO SCH (08:58)
[2019-03-14] MEDS: DILTIAZEM HCL CD 180 MG PO SCH (09:00)
[2019-03-14] MEDS: AMIODARONE HCL 200 MG TABLET PO SCH ×2 (09:00→17:00)
[2019-03-14] MEDS: METOPROLOL TARTRATE 50 MG TABLET PO SCH ×2 (09:00→22:11)
[2019-03-14] MEDS: predniSONE 5 MG TABLET PO SCH (09:05)
[2019-03-14] MEDS: CALCIUM CARB 250MG /VITAMIN D 1 UDTAB PO SCH ×3 (09:05→18:40)
[2019-03-14] MEDS ORDERED: HEPARIN SODIUM, PORCINE 1000 UNIT/1 ML VIAL IV ONE (15:00)
[2019-03-14] MEDS: OSELTAMIVIR PHOSPHATE 75 MG CAPSULE PO SCH (18:40)
[2019-03-14 19:30] VITALS: BP 146/90
--- NOTE | 2019-03-14 19:30 | NUR ---
MS RN NOTES PATIENTI N BED, AWAKE, ALERT AND ORIENTED X 4. BREATHING EVEN AND UNLABORED ON NC 4L. DENIES NO ACUTE RESPIRATORY DISTRESS, NO ACUTE PAIN. IV ON R FA 22G SL. CLEAN DRY AND INTACT. SHOWS NO SIGN OF INFILTRATION NO REDNESS. SAFETY PRECAUTION IN PLACE. BED IN LOWEST POSITION LOCKED, AND CALL LIGHT KEPT WITHIN REACH. WILL CONTINUE TO MONITOR.
[2019-03-14 20:00] VITALS: BP 146/90
[2019-03-14] MEDS: SOD FERRIC GLUC 125 MG in IV NS 0.9% 100 ML IV SCH (21:19)
[2019-03-14] MEDS: ACETAMINOPHEN 325 MG TABLET PO PRN (21:23)
[2019-03-14] MEDS: CEFEPIME 1 GM in IV D5W 50 ML IV SCH (22:12)
[2019-03-15] MEDS: CITRIC ACID/SODIUM CITRATE (BICITRA)15 ML UDC PO SCH ×3 (04:49→21:19)
[2019-03-15] MEDS: hydrALAZINE HCL 50 MG TABLET PO SCH ×3 (04:49→21:17)
[2019-03-15 06:32] LABS: BASOPHILS % (AUTO) 0.6 % (0.0-2.0); EOSINOPHILS % (AUTO) 2.7 % (0.0-6.0); HEMATOCRIT 26 % (39-51); HEMOGLOBIN 8.3 g/dL (13.5-17.5); LYMPHOCYTES # (AUTO) 0.5 /CMM (0.8-4.8); LYMPHOCYTES % (AUTO) 12.3 % (20.0-44.0); MEAN CORPUSCULAR HGB CONC 32 g/dl (31.0-36.0); MEAN CORPUSCULAR VOLUME 86 fL (80-96); MONOCYTES # (AUTO) 0.4 /CMM (0.1-1.30); MONOCYTES % (AUTO) 10.7 % (2.0-12.0); NEUTROPHILS # (AUTO) 2.7 /CMM (1.8-8.9); NEUTROPHILS % (AUTO) 73.7 % (43.0-81.0); PLATELET COUNT (AUTO) 89 /CMM (150-450); RED BLOOD CELL COUNT(AUTO) 3.01 MIL/uL (4.5-6.0); WHITE BLOOD COUNT (AUTO) 3.7 K/uL (4.3-11.0)
--- NOTE | 2019-03-15 06:38 | NUR ---
MS RN NOTES PATIENT IN BED, ASLEEP, ALERT AND ORIENTED X 4. BREATHING EVEN AND UNLABORED ON NC 4L. DENIES NO ACUTE RESPIRATORY DISTRESS, NO ACUTE PAIN. IV ON R FA 22G SL. CLEAN DRY AND INTACT. SHOWS NO SIGN OF INFILTRATION NO REDNESS. ALL DUE MEDICATIONS GIVEN. [place]NE PRECAUTIONS IN PLACE. SAFETY PRECAUTION IN PLACE. BED IN LOWEST POSITION LOCKED, AND CALL LIGHT KEPT WITHIN REACH. WILL ENDORSE TO ONCOMING NURSE.
[2019-03-15 06:41] LABS: CALCIUM, SERUM 8.4 mg/dL (8.5-10.1); CREATININE 6.4 mg/dL (0.6-1.3); POTASSIUM 4.8 mmol/L (3.5-5.1)
--- NOTE | 2019-03-15 07:19 | NUR ---
MS Nurses Notes: PATIENT IN BED, AWAKENED, ALERT AND ORIENTED X 4. BREATHING EVEN AND UNLABORED ON NC 4L. DENIES NO ACUTE RESPIRATORY DISTRESS, IV ON RIGHT FA 22G SL. CLEAN DRY AND INTACT. SHOWS NO SIGN OF INFILTRATION, NO REDNESS. AIRB[place]NE PRECAUTIONS IN PLACE, POSSIBLE TB. SAFETY PRECAUTION IN PLACE. BED IN LOWEST POSITION LOCKED, AND CALL LIGHT KEPT WITHIN REACH, REPORT OBTAINED FROM THE NIGHT NURSE JOSE RODGERS RN
[2019-03-15 07:49] VITALS: BP 155/89
[2019-03-15 08:00] VITALS: BP 155/83
[2019-03-15] MEDS: LEVOTHYROXINE SODIUM 25 MCG TABLET PO SCH (08:47)
[2019-03-15] MEDS: PANTOPRAZOLE 40 MG TABLET.DR PO SCH (08:47)
[2019-03-15] MEDS: METOPROLOL TARTRATE 50 MG TABLET PO SCH ×2 (08:48→22:33)
[2019-03-15] MEDS: DILTIAZEM HCL CD 180 MG PO SCH (08:49)
[2019-03-15] MEDS: FOLIC ACID 1 MG TABLET PO SCH (08:49)
[2019-03-15] MEDS: AMIODARONE HCL 200 MG TABLET PO SCH ×2 (08:49→18:30)
[2019-03-15] MEDS: FAMOTIDINE (20 MG) 20 MG TABLET PO SCH ×2 (08:49→21:20)
[2019-03-15] MEDS: predniSONE 5 MG TABLET PO SCH (08:49)
[2019-03-15] MEDS: MYCOPHENOLATE MOFETIL 250 MG CAPSULE PO SCH ×2 (08:50→21:20)
[2019-03-15] MEDS: CHOLECALCIFEROL 1,000 UNIT TABLET (VIT D3) PO SCH (09:01)
[2019-03-15] MEDS: CALCIUM CARB 250MG /VITAMIN D 1 UDTAB PO SCH ×3 (09:01→18:30)
[2019-03-15] MEDS: CALCITRIOL 0.25 MCG CAPSULE PO SCH (09:01)
[2019-03-15] MEDS: APIXABAN 2.5 MG TABLET PO SCH ×3 (09:03→18:45)
[2019-03-15] MEDS: FUROSEMIDE 40 MG/4 ML VIAL IV SCH ×2 (09:07→18:38)
[2019-03-15 09:10] VITALS: BP 152/69
[2019-03-15 09:51] LABS: ABG BASE EXCESS 0.4 mmol/L; ABG OXYGEN SATURATION 95.3 % (92.0-98.5); ABG PCO2 36.8 mmHg (35.0-45.0); ABG PO2 79.2 mmHg (75.0-100.0); COHb 0.5 % (0.5-1.5); MetHb 0.3 % (0.0-1.5); O2Hb 94.5 % (94.0-97.0); SITE, ABG Right Brachial; VENT MODE, BG 2 L/M NASAL CANNULA
[2019-03-15] MEDS ORDERED: DOXY-226 PO (12:35)
[2019-03-15] MEDS ORDERED: APIX2.5T PO (12:35)
--- NOTE | 2019-03-15 12:46 | NUR ---
Nurse Notes: case management Larry called. patient needs dialysis time, patient stated does not have a Dialysis time and place as outpatient. Dr Rainey is discharging patient, patient needs dialysis tomorrow. Patient is off airborne isolation.
[2019-03-15] MEDS: SOD FERRIC GLUC 125 MG in IV NS 0.9% 100 ML IV SCH (17:10)
[2019-03-15] MEDS: ACETAMINOPHEN 325 MG TABLET PO PRN (17:11)
--- NOTE | 2019-03-15 19:00 | NUR ---
Nurse Notes: Eliquis not given, platelets was 89,000, told the charge nurse will text Dr Rainey, if there will be a parameter on holding eliquis. Addendum: 03/15/19 at 2030 by JANET BALDERAS RN Eliquis not given to patient dose was return to the individual patient cassette. Hold Eliquis for less than 100.
--- NOTE | 2019-03-15 19:15 | NUR ---
RN MS OPENING NOTES RECEIVED PATIENT IN BED AWAKE ALERT AND ORIENTED X4 RESPIRATIONS EVEN AND UNLABORED WITH EQUAL RISE AND FALL OF CHEST DENIES ANY PAIN OR DISCOMFORT AT THIS TIME. ON 02 2 L VIA NASAL CANNULA TOLERATING WELL FOR COMFORT, URINAL WITHIN REACH, IV SITE TO RIGHT FA #22 SL , NO REDNESS, NO INFILTRATION PRESENT, HD SITE TO LEFT FA WITH BRUIT PRESENT. ORIENTED TO STAFF AND CALL LIGHT AND KEPT WITHIN REACH, SAFETY PRECAUTIONS IN PLACE, LOW BED AND LOCKED ALL NEEDS ATTENDED AT THIS TIME, WILL CONTINUE TO MONITOR AND ATTEND TO NEEDS,SAFETY PRECAUTIONS IN PLACE.
--- NOTE | 2019-03-15 19:20 | NUR ---
Nurse Notes: REPORT GIVEN TO THE NIGHT NURSE CHITO PENA, PT IS RESTING IN BED, RECEIVED IV FERRELICIT ALSO RECEIVED IV LASIX, WAITING FOR DIALYSIS CHAIR.
[2019-03-15 20:00] VITALS: BP 127/83
[2019-03-15] MEDS: CEFEPIME 1 GM in IV D5W 50 ML IV SCH (21:15)
[2019-03-15] MEDS: GUAIFENESIN/D-METHORPHAN HB 5 ML UDC PO PRN (23:47)
--- NOTE | 2019-03-15 23:49 | NUR ---
RN MS NOTES PATIENT COMPLAINT OF COUGH REQUESTING FOR ROBITUSSIN PRN PRN ROBITUSSIN GIVEN ORDERED WILL CONTINUE TO MONITOR FOR EFFECTIVENESS
[2019-03-16 04:00] VITALS: BP 125/77
[2019-03-16] MEDS: hydrALAZINE HCL 50 MG TABLET PO SCH ×3 (05:00→21:00)
[2019-03-16] MEDS: CITRIC ACID/SODIUM CITRATE (BICITRA)15 ML UDC PO SCH ×3 (05:00→21:32)
--- NOTE | 2019-03-16 05:17 | NUR ---
RN MS NOTES PATIENT REFUSED HYDRALAZINE, HR RANGING 50 -52, ASYMPTOMATIC, NO DISTRESS PRESENT, DOES NOT WANT TO TAKE MEDICATION AT THIS TIME.
--- NOTE | 2019-03-16 06:22 | NUR ---
RN MS CLOSING NOTES PATIENT IN BED AWAKE ALERT AND ORIENTED X4 RESPIRATIONS EVEN AND UNLABORED WITH EQUAL RISE AND FALL OF CHEST DENIES ANY PAIN OR DISCOMFORT AT THIS TIME. ON 02 2 L VIA NASAL CANNULA TOLERATING WELL FOR COMFORT, URINAL WITHIN REACH TOTAL OUTPUT 700 CC URINE YELLOW , IV SITE TO RIGHT FA #22 SL , NO REDNESS, NO INFILTRATION PRESENT, HD SITE TO LEFT FA WITH BRUIT/ THRILL PRESENT. CALL LIGHT KEPT WITHIN REACH, SAFETY PRECAUTIONS IN PLACE, LOW BED AND LOCKED ALL NEEDS ATTENDED AT THIS TIME, WILL CONTINUE TO MONITOR AND ATTEND TO NEEDS, ALL DUE MEDS GIVEN AND TOLERATED WELL NO ADVERSE REACTIOSN,SAFETY PRECAUTIONS IN PLACE. WILL ENDORSE TO NEXT SHIFT FOR CONTINUITY OF CARE
[2019-03-16] MEDS: FUROSEMIDE 40 MG/4 ML VIAL IV SCH ×2 (08:35→17:13)
[2019-03-16] MEDS: CHOLECALCIFEROL 1,000 UNIT TABLET (VIT D3) PO SCH (08:35)
[2019-03-16] MEDS: DILTIAZEM HCL CD 180 MG PO SCH (08:36)
[2019-03-16] MEDS: METOPROLOL TARTRATE 50 MG TABLET PO SCH ×2 (08:37→21:00)
[2019-03-16] MEDS: FOLIC ACID 1 MG TABLET PO SCH (08:37)
[2019-03-16] MEDS: CALCITRIOL 0.25 MCG CAPSULE PO SCH (08:38)
[2019-03-16] MEDS: FAMOTIDINE (20 MG) 20 MG TABLET PO SCH ×2 (08:38→21:32)
[2019-03-16] MEDS: LEVOTHYROXINE SODIUM 25 MCG TABLET PO SCH (08:38)
[2019-03-16] MEDS: predniSONE 5 MG TABLET PO SCH (08:38)
[2019-03-16] MEDS: MYCOPHENOLATE MOFETIL 250 MG CAPSULE PO SCH ×2 (08:38→21:33)
[2019-03-16] MEDS: PANTOPRAZOLE 40 MG TABLET.DR PO SCH (08:38)
[2019-03-16] MEDS: AMIODARONE HCL 200 MG TABLET PO SCH ×2 (08:39→17:14)
[2019-03-16] MEDS: APIXABAN 2.5 MG TABLET PO SCH ×2 (08:40→16:58)
[2019-03-16] MEDS: CALCIUM CARB 250MG /VITAMIN D 1 UDTAB PO SCH ×3 (08:50→17:14)
--- NOTE | 2019-03-16 08:51 | NUR ---
alert, oriented, appeared to know ALL HIS MEDS. all meds HELD RIGHT NOW secondary to HD started. no complaint of pain. L kidney transplant 2004, so far " works well, " on [employer].
--- NOTE | 2019-03-16 12:24 | NUR ---
per HD personnel, dialysis cut 1/2hrs short, secondary to mechanical problem. Only 600cc out, . Patient still urinates a good amount of urine since the beginning of shift, until now 450cc.. VSS
[2019-03-16 12:27] VITALS: BP 130/75
--- NOTE | 2019-03-16 16:26 | NUR ---
" did not understand why i still need dialysis, I pee pee well, as you can see". Seen by the stove carriage operator , dr Anderson, referred him to the patient , for clarification. Verbalized understanding
[2019-03-16] MEDS ORDERED: VANCOMYCIN 1 GM in IV D5W 250 ML IV ONE (18:00)
--- NOTE | 2019-03-16 19:05 | NUR ---
MS RN NOTES RECEIVED PT IN BED AWAKE AND ABLE TO MAKE NEEDS KNOWN. PT A/O X3. RESPIRATIONS EVEN AND UNLABORED WITH NO S/S OF ACUTE DISTRESS OR SOB NOTED. NO COMPLAINTS OF PAIN AT THIS TIME. PT NOTED WITH RFA #22G PATENT AND INTACT AND SL. SAFETY MEASURES IN PLACE WITH BED IN LOWEST LOCKED POSITION WITH SIDE RAILS UP X2. CALL LIGHT WITHIN REACH. WILL CONTINUE TO MONITOR.
[2019-03-16] MEDS: CEFEPIME 1 GM in IV D5W 50 ML IV SCH (21:31)
--- NOTE | 2019-03-16 21:34 | NUR ---
MS RN NOTES LOPRESSOR HELD FOR DECREASED HR OF 54.
--- NOTE | 2019-03-16 21:36 | NUR ---
MS RN NOTES HYDRALAZINE HELD FOR DECREASED HR OF 54.
[2019-03-17] MEDS: hydrALAZINE HCL 50 MG TABLET PO SCH ×3 (05:00→21:08)
[2019-03-17] MEDS: CITRIC ACID/SODIUM CITRATE (BICITRA)15 ML UDC PO SCH ×3 (06:02→21:06)
--- NOTE | 2019-03-17 06:02 | NUR ---
MS RN NOTES HYDRALAZINE HELD FOR DECREASED HR OF 57.
--- NOTE | 2019-03-17 06:44 | NUR ---
MS RN NOTES PT IN BED AWAKE AND ABLE TO MAKE NEEDS KNOWN. PT A/O X3. RESPIRATIONS EVEN AND UNLABORED WITH NO S/S OF ACUTE DISTRESS OR SOB NOTED THROUGHOUT SHIFT. NO COMPLAINTS OF PAIN AT THIS TIME. PT NOTED WITH RFA #22G PATENT AND INTACT AND SL. SAFETY MEASURES IN PLACE WITH BED IN LOWEST LOCKED POSITION WITH SIDE RAILS UP X2. CALL LIGHT WITHIN REACH. WILL ENDORSE TO ONCOMING NURSE FOR DOMENIC.
[2019-03-17] MEDS: FAMOTIDINE (20 MG) 20 MG TABLET PO SCH ×2 (08:33→21:08)
[2019-03-17] MEDS: LEVOTHYROXINE SODIUM 25 MCG TABLET PO SCH (08:33)
[2019-03-17] MEDS: MYCOPHENOLATE MOFETIL 250 MG CAPSULE PO SCH ×2 (08:34→21:15)
[2019-03-17] MEDS: AMIODARONE HCL 200 MG TABLET PO SCH ×2 (08:34→16:41)
[2019-03-17] MEDS: CALCIUM CARB 250MG /VITAMIN D 1 UDTAB PO SCH ×3 (08:35→16:40)
[2019-03-17] MEDS: predniSONE 5 MG TABLET PO SCH (08:35)
[2019-03-17] MEDS: CHOLECALCIFEROL 1,000 UNIT TABLET (VIT D3) PO SCH (08:35)
[2019-03-17] MEDS: PANTOPRAZOLE 40 MG TABLET.DR PO SCH (08:35)
[2019-03-17] MEDS: CALCITRIOL 0.25 MCG CAPSULE PO SCH (08:35)
[2019-03-17] MEDS: FOLIC ACID 1 MG TABLET PO SCH (08:36)
[2019-03-17] MEDS: FUROSEMIDE 40 MG/4 ML VIAL IV SCH ×2 (08:38→16:40)
[2019-03-17] MEDS: DILTIAZEM HCL CD 180 MG PO SCH (08:38)
[2019-03-17] MEDS: METOPROLOL TARTRATE 50 MG TABLET PO SCH ×2 (08:38→21:00)
[2019-03-17] MEDS: APIXABAN 2.5 MG TABLET PO SCH ×2 (08:39→16:41)
--- NOTE | 2019-03-17 10:30 | NUR ---
alert, oriented, and appropriate, no c/o of discomfort, appetite good for breakfast. Anxious to go home, and worries about next dialysis. " need to talk to kidney dr". Will relay the message to dr Esposito , on rounds
--- NOTE | 2019-03-17 11:56 | NUR ---
nose bleed noted, seen by both attending and area intelligence technician today, nothing mentioned on the notes, texted to Dr Rainey, patient awaiting dialysis chair prior to discharge
[2019-03-17 20:00] VITALS: BP_SYST 132; BP_SYST 135; BP_DIAS 85
--- NOTE | 2019-03-17 20:22 | NUR ---
patient sittiing on the bed comfortable with call light with reach
[2019-03-17] MEDS: CEFEPIME 1 GM in IV D5W 50 ML IV SCH (21:08)
[2019-03-18 04:00] VITALS: BP 141/84
[2019-03-18] MEDS: CITRIC ACID/SODIUM CITRATE (BICITRA)15 ML UDC PO SCH ×3 (05:28→20:54)
[2019-03-18] MEDS: hydrALAZINE HCL 50 MG TABLET PO SCH ×3 (05:30→20:56)
[2019-03-18 05:33] VITALS: BP 160/90
[2019-03-18 08:00] VITALS: BP 131/90
[2019-03-18] MEDS: AMIODARONE HCL 200 MG TABLET PO SCH ×2 (09:04→17:48)
[2019-03-18] MEDS: CHOLECALCIFEROL 1,000 UNIT TABLET (VIT D3) PO SCH (09:05)
[2019-03-18] MEDS: CALCITRIOL 0.25 MCG CAPSULE PO SCH (09:05)
[2019-03-18] MEDS: FAMOTIDINE (20 MG) 20 MG TABLET PO SCH ×2 (09:05→20:53)
[2019-03-18] MEDS: MYCOPHENOLATE MOFETIL 250 MG CAPSULE PO SCH ×2 (09:05→21:02)
[2019-03-18] MEDS: CALCIUM CARB 250MG /VITAMIN D 1 UDTAB PO SCH ×3 (09:05→17:47)
[2019-03-18] MEDS: predniSONE 5 MG TABLET PO SCH (09:05)
[2019-03-18] MEDS: FOLIC ACID 1 MG TABLET PO SCH (09:05)
[2019-03-18] MEDS: METOPROLOL TARTRATE 50 MG TABLET PO SCH ×2 (09:06→20:57)
[2019-03-18] MEDS: FUROSEMIDE 40 MG/4 ML VIAL IV SCH ×2 (09:06→17:47)
[2019-03-18] MEDS: LEVOTHYROXINE SODIUM 25 MCG TABLET PO SCH (09:11)
[2019-03-18] MEDS: PANTOPRAZOLE 40 MG TABLET.DR PO SCH (09:11)
[2019-03-18] MEDS: DILTIAZEM HCL CD 180 MG PO SCH (09:11)
[2019-03-18] MEDS: APIXABAN 2.5 MG TABLET PO SCH ×2 (09:12→18:14)
[2019-03-18 12:00] VITALS: BP 132/81
--- NOTE | 2019-03-18 13:28 | NUR ---
1300 medications held due to patient being dialyzed
[2019-03-18 16:00] VITALS: BP 129/73
--- NOTE | 2019-03-18 18:45 | NUR ---
RN CLOSING NOTE: PATIENT HAS VSS, DENIES PAIN THROUGHOUT SHIFT. ABLE TO EAT, DRINK AND VOID WELL. MEDICATIONS TOLERATED WELL, NO ASE REPORTED/OBSERVED. DIALYSIS TODAY WITH 1.5 LITERS OUT, TOLERATED WELL. SKIN IS PINK, WARM AND DRY. IV TO RIGHT FOREARM REMAINED PATENT WITH DRESSING C/D/I. ASSISTED NEEDED WITH ADL'S, MIN ASSISTANCE REQUIRED. PATIENT STATES HE FEELS READY TO GO HOME. WAITING FOR OUTPATIENT DIALYSIS ASSIGNMENT. WILL ENDORSE TO NIGHT NURSE FOR F/U BY CM IN AM.
--- NOTE | 2019-03-18 19:05 | NUR ---
RN OPENING NOTE RECEIVED PATIENT IN BED RESTING WITH HOB ELEVATED. WATCHING TV. A&O X3. BREATHING IS EVEN AND NON-LABORED. NO SOB NOTED. ABLE TO MAKE NEEDS KNOWN. CALL LIGHT IS WITHIN EASY REACH. BED IS LOWERED AND LOCKED FOR SAFETY. WILL CONTINUE TO MONITOR.
[2019-03-18 20:00] VITALS: BP 140/79
[2019-03-18] MEDS ORDERED: VANCOMYCIN 500 MG in IV D5W 100 ML IV ONE (20:00)
[2019-03-18] MEDS: GUAIFENESIN/D-METHORPHAN HB 5 ML UDC PO PRN (21:03)
[2019-03-18] MEDS: CEFEPIME 1 GM in IV D5W 50 ML IV SCH (21:08)
[2019-03-19] MEDS: hydrALAZINE HCL 50 MG TABLET PO SCH ×2 (04:30→12:14)
[2019-03-19] MEDS: CITRIC ACID/SODIUM CITRATE (BICITRA)15 ML UDC PO SCH ×2 (04:35→12:14)
[2019-03-19 04:54] VITALS: BP 109/67
[2019-03-19] MEDS: PANTOPRAZOLE 40 MG TABLET.DR PO SCH (06:40)
[2019-03-19] MEDS: LEVOTHYROXINE SODIUM 25 MCG TABLET PO SCH (06:40)
--- NOTE | 2019-03-19 07:25 | NUR ---
MS/RN OPENING NOTES RECEIVED PATIENT IN BED SLEEPING COMFORTABLY. EASILY AROUSABLE. NO PAIN OR ACUTE DISTRESS AT THIS TIME. RESPIRATION EVEN AND UNLABORED. SKIN IS DRY WARM TO TOUCH. IV ACCESS ON RIGHT FA INTACT AND PATENT. FLUSHING WELL. NO S/S OF INFECTION OT INFILTRATION. ALL NEEDS ANTICIPATED. CALL LIGHT WITHIN REACHED. SAFETY MAINTAINED. PLAN OF CARE DISCUSSED WITH PATIENT. WILL CONTINUE TO MONITOR CLOSELY.
--- NOTE | 2019-03-19 07:31 | NUR ---
RN CLOSING NOTE PATIENT IS IN BED RESTING. BREATHING IS EVEN AND NON LABORED. IN NO APPARENT DISTRESS NOTED AT THIS TIME. A&O X3. ABLE TO MAKE NEEDS KNOWN. BED IS LOWERED AND LOCKED FOR SAFETY. CALL LIGHT IS WITHIN REACH. ENDORSED TO EBEN PENA FOR CONTINUATION OF CARE.
[2019-03-19 08:00] VITALS: BP 111/69
[2019-03-19] MEDS: FUROSEMIDE 40 MG/4 ML VIAL IV SCH (08:53)
[2019-03-19] MEDS: CHOLECALCIFEROL 1,000 UNIT TABLET (VIT D3) PO SCH (08:53)
[2019-03-19] MEDS: AMIODARONE HCL 200 MG TABLET PO SCH (08:54)
[2019-03-19] MEDS: FOLIC ACID 1 MG TABLET PO SCH (08:55)
[2019-03-19] MEDS: FAMOTIDINE (20 MG) 20 MG TABLET PO SCH (08:55)
[2019-03-19] MEDS: MYCOPHENOLATE MOFETIL 250 MG CAPSULE PO SCH (08:55)
[2019-03-19] MEDS: CALCITRIOL 0.25 MCG CAPSULE PO SCH (08:55)
[2019-03-19] MEDS: DILTIAZEM HCL CD 180 MG PO SCH (09:00)
[2019-03-19] MEDS: CALCIUM CARB 250MG /VITAMIN D 1 UDTAB PO SCH ×2 (09:00→12:14)
[2019-03-19] MEDS: METOPROLOL TARTRATE 50 MG TABLET PO SCH (09:00)
[2019-03-19] MEDS: APIXABAN 2.5 MG TABLET PO SCH (09:00)
[2019-03-19] MEDS: predniSONE 5 MG TABLET PO SCH (09:08)
[2019-03-19 12:14] VITALS: BP 114/72
--- NOTE | 2019-03-19 14:45 | NUR ---
room air saturation 86% at rest, made aware,will arrange home oxygen with disease case manager.
--- NOTE | 2019-03-19 16:00 | NUR ---
MS/AUTO CAMP ATTENDANT NOTES THE SISTER OF THE PATIENT ARRIVED AT THE UNIT. ALL DISCHARGE PAPERS WAS SIGNED AND GIVEN TO THE SISTER. BELONGINGS WAS ALSO CHECKED AND WAS GIVEN WELL. DISCHARGE INSTRUCTIONS WAS PROVIDED WELL, INCLUDING THE DIALYSIS LOCATION AND INTERVALS. TRANSPORTATION INFORMATION WAS ALSO PROVIDED. SKIN ASSESSMENT WAS DONE. SKIN IS INTACT. IV ACCESS WAS REMOVED. PATIENT WAS PLACED ON A WHEELCHAIR AND WAS BROUGHT TO THE LOBBY AND WAS TRANSFERRED TO HIS SISTERS CAR. PATIENT LEFT THE HOSPITAL IN STABLE CONDITION.
[2019-03-19] MEDS ORDERED: AMIODARONE HCL 200 MG TABLET PO SCH (17:00)
== END 2019-03-19 16:16 | disposition home or self-care (01) | DRG 720 ==
LOC: ICU 16:54 → TELE-TD 23:20 → TELE1 03-09 09:32 → MEDSG1 03-12 12:08
PROVIDERS: ADMIT Internal Medicine; ATTEND Internal Medicine
DX: A41.9 Sepsis, unspecified organism (principal); I13.2 Hypertensive heart and chronic kidney disease with heart failure and with stage 5 chronic kidney disease, or end stage renal disease; J15.6 Pneumonia due to other Gram-negative bacteria; J11.00 Influenza due to unidentified influenza virus with unspecified type of pneumonia; D68.59 Other primary thrombophilia; N17.9 Acute kidney failure, unspecified; I27.21 Secondary pulmonary arterial hypertension; J15.9 Unspecified bacterial pneumonia; D89.9 Disorder involving the immune mechanism, unspecified; I48.0 Paroxysmal atrial fibrillation; I50.33 Acute on chronic diastolic (congestive) heart failure; N18.6 End stage renal disease; I48.92 Unspecified atrial flutter; Z99.2 Dependence on renal dialysis; B96.0 Mycoplasma pneumoniae [M. pneumoniae] as the cause of diseases classified elsewhere; Z94.0 Kidney transplant status; Z79.82 Long term (current) use of aspirin; Y95 Nosocomial condition; E89.0 Postprocedural hypothyroidism
CPT/HCPCS: 36415; 36600; 71045-TC; 71250-TC; 80048-TC; 80202-TC; 82728-TC; 82803-TC; 83540-TC; 83735-TC; 84100-TC; 85025-TC; 86704; 86705; 86706; 86713; 86738; 86803; 87040-TC; 87070-TC; 87081-TC; 87116; 87206; 87340; 87556; 87899; 90935-TC; 93307-TC; 94640-TC; 94799-TC; A4218; G0378; J0692; J1644; J1940; J2916; J3370; J7030; J7050; J7060; J7512; J7515; J7517